=== PATIENT | male | born 2000 | race African-American/Black ===

== ENCOUNTER 2021-07-29 13:18 | Emergency (ER) | payer OTHER, SELFPAY ==
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
[2021-07-29 13:31] VITALS: BP 149/96; PULSE 80; RESP 18; TEMP 36.4; O2SAT 100
[2021-07-29] MEDS: KETOROLAC 10 MG TABLET PO (15:37)
[2021-07-29] MEDS: Please add drug allergy info to patient profile. XX (15:37)
[2021-07-29] MEDS: ORPHENADRINE CITRATE 100 MG TABLET.ER PO (15:37)
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
== END 2021-07-29 17:22 | disposition home or self-care (01) ==
PROVIDERS: Emergency Provider Nurse Practitioner Family
DX: S16.1XXA Strain of muscle, fascia and tendon at neck level, initial encounter (principal); V43.52XA Car driver injured in collision with other type car in traffic accident, initial encounter
CPT/HCPCS: 70450; 99284; A9270